=== PATIENT | male | born 1980 | race Caucasian/White ===

== ENCOUNTER 2016-08-08 17:45 | Emergency (ER) | payer BC ==
[2016-08-08 17:49] VITALS: BP 112/64; BMI 25.8
--- NOTE | 2016-08-08 18:04 | DR.GENAD ---
HPI - PCP Primary Care Physician: LAUREN Roberts HPI Comment HPI Comment: HISTORY BELOW. - Complaint/Symptoms Chief Complaint Doctors Comments: ABDOMINAL PAIN GOING TO BACK WITH NAUSEA TIMES SEVERAL HOURS. NO DYSURIA OR HEMATURIA. GETTING WORSE. Chief Complaint:: PATIENT STATED THAT HE IS HAVING ABD. PAIN ON AND OFF ALL DAY. VOMITING ON AND OFF. PAIN RADIATE TO THE BACK. - Nurses notes reviewed Nurses Notes Review: Yes - Source History Provided: Patient - Mode of Arrival Mode of Arrival: Ambulatory - Timing Onset of Chief Complaint: 08/08/16 Came on: Suddenly - Duration Duration: Constant Duration: Hours - Severity Severity: Moderate PMH - PMH Past Medical History: No Past Surgical History: Yes Surgical History: Appendectomy - Family History History of Family Medical Conditions: Yes Family Medical History: Cancer - Social History Does patient currently use any type of tobacco product: No Have you used tobacco products in the last 12 months: No Type of Tobacco Use: None Does any household member use tobacco: No Alcohol Use: Occasionally Do you use any recreational Drugs:: No Lives With: Alone, Family Lives Where: Home - infectious screening In the last 2 months have you had wt loss of >10#?: NO Have you had fever, night sweats or hemotysis?: No Have you traveled outside the country in the last 6 months?: No Isolation: Standard ROS - Review of Systems Constitutional: No Symptoms Reported Eyes: No Symptoms Reported ENTM: No Symptoms Reported Respiratoy: No Symptoms Reported Cardiovascular: No Symptoms Reported Neurological: No Symptoms Reported Musculoskeletal: No Symptoms Reported Integumentary: No Symptoms Reported Hematologic/Lymphatic: No Symptoms Reported Endocrine: No Symptoms Reported All Other Systems: Reviewed and Negative PE - Vital Signs Vitals: Temperature 98.3 F Pulse Rate 92 Respiratory Rate 20 Blood Pressure 112/64 O2 Sat by Pulse Oximetry 96 - General Limitations: No Limitations General Appearance: Alert - Head Head Exam: Normal Inspection - Eyes Eye exam: Normal Appearance - ENT ENT Exam: Normal External Ear Exam External Ear Exam: Normal External Inspection TM/Canal Exam: Bilateral Normal Nose Exam: Normal Nose Exam Mouth Exam: Normal Inspection Throat Exam: Normal Inspection - Neck Neck Exam: Trachea Midline - Chest Chest Inspection: Symmetric Chest Wall Rise - Respiratory Respiratory Exam: Normal Lung Sounds Bilat Respiratory Exam: Bilateral Clear to Auscultation - Cardiovascular Cardiovascular Exam: Regular Rate, Normal Rhythm, Normal Heart Sounds - Extremities Extremities Exam: Normal Inspection - Back Back Exam: Normal Inspection - Neurologic Neurological Exam: Alert, Oriented X3 - Psychiatric Psychiatric Exam: Normal Affect, Normal Mood - Skin Skin Exam: Normal Color MDM - Differential Diagnosis Differential Diagnosis: ABDOMINAL PAIN, UTI Course - Treatment Treatment: SEE ORDERS - Education/Counseling Education/Counseling: Patient, Education Educated On: Diagnosis, Needs for Follow Up ROR - Labs Reviewed Laboratory Results Reviewed?: Yes Result Diagrams: 08/08/16 18:15 08/08/16 18:15 Laboratory: WBC 9.7 X10^3/uL (3.6-10.0) 08/08/16 18:15 RBC 5.09 X10^6/uL (4.7-6.0) 08/08/16 18:15 Hgb 16.2 g/dL (13.5-18.0) 08/08/16 18:15 Hct 45.4 % (42.0-54.0) 08/08/16 18:15 MCV 89.2 fL (80.0-100.0) 08/08/16 18:15 MCH 31.9 pg (27.0-34.0) 08/08/16 18:15 MCHC 35.8 g/dL (33.0-35.0) H 08/08/16 18:15 RDW 12.8 % (11.6-16.5) 08/08/16 18:15 Plt Count 178 X10^3/uL (150.0-450.0) 08/08/16 18:15 MPV 8.3 fL (7.4-11.0) 08/08/16 18:15 Neut % 89.9 % (42.0-75.0) H 08/08/16 18:15 Lymph % 3.5 % (21.0-51.0) L 08/08/16 18:15 Ashley % 4.0 % (0.0-13.0) 08/08/16 18:15 Eos % 2.2 % (0.9-2.9) 08/08/16 18:15 Baso % 0.4 % (0.2-1.0) 08/08/16 18:15 Neut # 8.7 x10^3/uL (2.2-4.8) H 08/08/16 18:15 Lymph # 0.3 X10^3/uL (1.3-2.9) L 08/08/16 18:15 Ashley # 0.4 x10^3/uL (0.3-0.8) 08/08/16 18:15 Eos # 0.2 x10^3/uL (0.0-0.2) 08/08/16 18:15 Baso # 0.0 X10^3/uL (0.0-0.1) 08/08/16 18:15 Absolute Nucleated RBC 0.1 /100WBC 08/08/16 18:15 Sodium 137 mmol/L (136-145) 08/08/16 18:15 Corrected Sodium TNP 08/08/16 18:15 Potassium 4.3 mmol/L (3.5-5.1) 08/08/16 18:15 Chloride 102 mmol/L (98-107) 08/08/16 18:15 Carbon Dioxide 26.3 mmol/L (21-32) 08/08/16 18:15 BUN 16 mg/dL (7-18) 08/08/16 18:15 Creatinine 1.23 mg/dL (0.70-1.30) 08/08/16 18:15 Est GFR (MDRD) Af Amer > 60 (>60) 08/08/16 18:15 Est GFR (MDRD) Non-Af > 60 (>60) 08/08/16 18:15 Glucose 97 mg/dL (65-99) 08/08/16 18:15 Calcium 8.7 mg/dL (8.5-10.1) 08/08/16 18:15 Corrected Calcium TNP 08/08/16 18:15 Total Bilirubin 1.10 mg/dL (0.2-1.0) H 08/08/16 18:15 AST 22 Units/L (15-37) 08/08/16 18:15 ALT 44 Units/L (12-78) 08/08/16 18:15 Alkaline Phosphatase 62 Units/L (46-116) 08/08/16 18:15 Total Protein 7.9 g/dL (6.4-8.2) 08/08/16 18:15 Albumin 4.3 g/dL (3.4-5.0) 08/08/16 18:15 Globulin 3.6 g/dL (2.5-4.5) 08/08/16 18:15 Albumin/Globulin Ratio 1.2 Ratio (1.1-2.1) 08/08/16 18:15 Amylase 43 Units/L (25-115) 08/08/16 18:15 Lipase 77 Units/L (73-393) 08/08/16 18:15 Specimen Type Clean catch urine 08/08/16 18:05 Urine Color Yellow (YELLOW) 08/08/16 18:05 Urine Appearance Clear (CLEAR) 08/08/16 18:05 Urine pH 5.0 (5.0 - 8.0) 08/08/16 18:05 Ur Specific [place] 1.020 (1.000-1.030) 08/08/16 18:05 Urine Protein Negative (NEGATIVE) 08/08/16 18:05 Urine Glucose (UA) Negative (NEGATIVE) 08/08/16 18:05 Urine Ketones 2+ (NEGATIVE) 08/08/16 18:05 Urine Occult Blood 3+ (NEGATIVE) 08/08/16 18:05 Urine Nitrite Negative (NEGATIVE) 08/08/16 18:05 Urine Bilirubin Negative (NEGATIVE) 08/08/16 18:05 Urine Urobilinogen Normal (NORMAL) 08/08/16 18:05 Ur Leukocyte Esterase Negative (NEGATIVE) 08/08/16 18:05 Urine RBC 0-3 /HPF (NEGATIVE) 08/08/16 18:05 Urine WBC None seen /HPF (NEGATIVE) 08/08/16 18:05 Ur Squamous Epith Cells Rare /HPF (NEGATIVE) 08/08/16 18:05 Urine Bacteria Trace /HPF (NEGATIVE) 08/08/16 18:05 Ur Culture Indicated? No/not indicated 08/08/16 18:05 H. pylori IgG Antibody Negative (NEGATIVE) 08/08/16 19:14 - XRAY XRAY Interpreted by: Radiologist XRAY Findings: REPORT DISCUSS WITH PATIENT. - Diagnosis Discharge Problem: Abdominal pain Qualifiers: Abdominal location: periumbilical Qualified Code(s): R10.33 - Periumbilical pain Nausea & vomiting Qualifiers: Vomiting type: bilious vomiting Qualified Code(s): R11.14 - Bilious vomiting - Discharge Plan Disposition: 01 HOME, SELF-CARE Condition: Stable Prescriptions: Ondansetron HCl [Zofran Tab 4 mg] 4 mg PO Q8H PRN #12 tab PRN Reason: Nausea/Vomiting Ranitidine HCl [ZANTAC TAB 150 MG *] 150 mg PO BID #60 tab - Follow ups/Referrals Follow ups/Referrals: GAIL AGUILAR [Primary Care Provider] - 3 days - Instructions Instructions: Abdominal Pain, Adult, [id number], Nausea and Vomiting, Adult Additional Instructions: RETURN TO ED IF WORSE.
[2016-08-08 18:29] LABS: BILIRUBIN,URINE NEGATIVE (NEGATIVE); BLOOD/HEMOGLOBIN,URINE 3+ (NEGATIVE); GLUCOSE, URINE NEGATIVE (NEGATIVE); KETONES,URINE 2+ (NEGATIVE); LEUKOCYTE ESTERASE ,URINE NEGATIVE (NEGATIVE); NITRITES,URINE NEGATIVE (NEGATIVE); PROTEIN,URINE NEGATIVE (NEGATIVE); UROBILINOGEN,URINE NORMAL (NORMAL)
[2016-08-08 18:37] LABS: APPEARANCE,URINE CLEAR (CLEAR); COLOR,URINE YELLOW (YELLOW)
[2016-08-08 18:38] LABS: BACTERIA,URINE TRACE /HPF (NEGATIVE); RBC,URINE 0-3 /HPF (NEGATIVE); SQUAMOUS EPITHELIAL CELL,UR RARE /HPF (NEGATIVE)
[2016-08-08 18:41] LABS: BASOPHILS % (AUTO) 0.4 % (0.2-1.0); EOSINOPHILS # (AUTO) 0.2 x10^3/uL (0.0-0.2); EOSINOPHILS % (AUTO) 2.2 % (0.9-2.9); HEMATOCRIT 45.4 % (42.0-54.0); HEMOGLOBIN 16.2 g/dL (13.5-18.0); LYMPHOCYTES # (AUTO) 0.3 X10^3/uL (1.3-2.9); LYMPHOCYTES % (AUTO) 3.5 % (21.0-51.0); MEAN CORPUSCULAR HEMOGLOBIN 31.9 pg (27.0-34.0); MEAN CORPUSCULAR HGB CONC 35.8 g/dL (33.0-35.0); MEAN CORPUSCULAR VOLUME 89.2 fL (80.0-100.0); MEAN PLATELET VOLUME 8.3 fL (7.4-11.0); MONOCYTES # (AUTO) 0.4 x10^3/uL (0.3-0.8); NEUTROPHILS # (AUTO) 8.7 x10^3/uL (2.2-4.8); NEUTROPHILS % (AUTO) 89.9 % (42.0-75.0); PLATELET COUNT 178 X10^3/uL (150.0-450.0); RED BLOOD COUNT 5.09 X10^6/uL (4.7-6.0); RED CELL DISTRIBUTION WIDTH 12.8 % (11.6-16.5); WHITE BLOOD COUNT 9.7 X10^3/uL (3.6-10.0)
[2016-08-08 18:42] LABS: ALANINE AMINOTRANSFERASE 44 Units/L (12-78); ALBUMIN 4.3 g/dL (3.4-5.0); ALKALINE PHOSPHATASE 62 Units/L (46-116); AMYLASE 43 Units/L (25-115); ASPARTATE AMINO TRANSFERASE 22 Units/L (15-37); BLOOD UREA NITROGEN 16 mg/dL (7-18); CALCIUM 8.7 mg/dL (8.5-10.1); CARBON DIOXIDE 26.3 mmol/L (21-32); CHLORIDE 102 mmol/L (98-107); CREATININE 1.23 mg/dL (0.70-1.30); GLUCOSE 97 mg/dL (65-99); LIPASE 77 Units/L (73-393); SODIUM 137 mmol/L (136-145); TOTAL PROTEIN 7.9 g/dL (6.4-8.2); eGFR BLACK RACES > 60 (>60); eGFR NON BLACK RACES > 60 (>60)
[2016-08-08] MEDS ORDERED: LEVSIN/MAALOX/LIDOC VISC PO ONE (19:15)
[2016-08-08] MEDS ORDERED: PEPCID TAB 20 MG PO ONE (19:16)
[2016-08-08] MEDS ORDERED: PEPCID TAB 20 MG ONE (19:26)
[2016-08-08] MEDS ORDERED: LEVSIN/MAALOX/LIDOC VISC ONE (19:26)
[2016-08-08] MEDS ORDERED: ZOFRAN TAB 4 MG PO ONE (19:52)
[2016-08-08] MEDS ORDERED: ZOFRAN TAB 4 MG ONE (19:53)
--- NOTE | 2016-08-08 20:37 | RAD ---
HISTORY: Chest and abdominal pain. Acute abdominal series. Findings: The trachea is midline. The cardiac silhouette is unremarkable. The lungs are clear without focal infiltrate or effusion. The bony thorax is unremarkable. Flat plate and upright evaluation of the abdomen demonstrates a nonspecific bowel gas pattern. No fr ee peritoneal air is seen. No pathological soft tissue abdominal mass effect or focal calcification can be observed. The bony structures are grossly intact. IMPRESSION: 1. No acute cardiopulmonary disease. 2. No bowel obstruction or free peritoneal air seen. 3. Numerous intraluminal air-fluid levels are seen throughout the mid abdomen and in the right lower quadrant which can be seen with a diarrheal illness or gastroenteritis. Please correlate with clini parker presentation. Abdominopelvic CT imaging with IV/oral contrast may be beneficial. No gross free p eritoneal air or high-grade bowel obstruction is seen. Reported By:
[2016-08-08] MEDS ORDERED: PHENERGAN INJ 25 MG IV ONE (22:14)
[2016-08-08] MEDS ORDERED: DEMEROL INJ IVP ONE (22:14)
[2016-08-08] MEDS ORDERED: PHENERGAN INJ 25 MG ONE (22:27)
[2016-08-08] MEDS ORDERED: DEMEROL INJ ONE (22:27)
[2016-08-08] MEDS ORDERED: NS 100 ML IV 100 ML IV ONE (23:24)
--- NOTE | 2016-08-08 23:58 | CT ---
EXAM: CT ABDOMEN AND PELVIS WITH CONTRAST INDICATION: Abdominal pain COMPARISION: No priors available for comparison TECHNIQUE: Axial CT examination of the abdomen and pelvis was performed with intravenous contrast. The patient received intravenous contrast without adverse reaction. Coronal and sagittal reconstructions were c reated using the axial data. FINDINGS: The lung bases are clear. The liver, spleen, pancreas, adrenal glands, kidneys, and gallbladder are normal. There is no evidence of biliary ductal dilatation. The aorta and inferior vena cava are norm al in caliber. The bowel loops are nonobstructed. No abnormal mass, lymphadenopathy, or fluid collection. Urinary bladder is normal. The appendix has been removed. The regional skeleton is intact. IMPRESSION: Normal CT examination of the abdomen and pelvis. Reported By:
== END 2016-08-09 01:02 | disposition home or self-care (01) ==
LOC: ER 17:51
DX: R10.33 Periumbilical pain (principal); R11.14 Bilious vomiting
CPT/HCPCS: 36415; 74022; 74177; 80053; 81001; 82150; 83690; 85025; 86677; 96374; 96375; 99283; A4222; S0181; J2175; J2550